=== PATIENT | male | born 2000 | race Caucasian/White ===

== ENCOUNTER 2022-02-08 16:09 | Emergency (ER) | payer OTHER ==
[~2022-02-08] VITALS: Ht 182.9 cm; Wt 94.7 kg
[2022-02-08] MEDS ORDERED: MAXITROL EYE DRO5 ML OPTH (19:52)
== END 2022-02-08 19:58 | disposition home or self-care (01) ==
LOC: ED 16:09
DX: S05.01XA Injury of conjunctiva and corneal abrasion without foreign body, right eye, initial encounter (principal); X58.XXXA Exposure to other specified factors, initial encounter; Y99.0 Civilian activity done for income or pay
CPT/HCPCS: 99283

== ENCOUNTER 2024-06-03 16:03 | Emergency (ER) | payer OTHER ==
[~2024-06-03] VITALS: Ht 182.9 cm; Wt 101.2 kg
[~2024-06-03 16:03] MED LIST: MAXITROL EYE DRO5 ML OPTH
[2024-06-03 17:45] VITALS: BP 138/70
== END 2024-06-03 17:45 | disposition home or self-care (01) ==
LOC: ED 16:03
DX: S61.211A Laceration without foreign body of left index finger without damage to nail, initial encounter (principal); W26.9XXA Contact with unspecified sharp object(s), initial encounter
CPT/HCPCS: 99282